=== PATIENT | male | born 1990 | race Two or more races ===

== ENCOUNTER 2022-02-04 08:52 | Emergency (ER) | payer SELFPAY ==
[2022-02-04] MEDS ORDERED: Lidocaine 1% 30 ML SDV INJECT ONE (09:08)
[2022-02-04] MEDS ORDERED: Diphtheria,Pertussis(Acell),Tetanus Vaccine 0.5 ML Syringe IM ONE (09:09)
== END 2022-02-04 10:32 | disposition home or self-care (01) ==
LOC: VM.ED 08:52
DX: S61.211A Laceration without foreign body of left index finger without damage to nail, initial encounter (principal); S61.213A Laceration without foreign body of left middle finger without damage to nail, initial encounter; S61.210A Laceration without foreign body of right index finger without damage to nail, initial encounter; S61.212A Laceration without foreign body of right middle finger without damage to nail, initial encounter; Z23 Encounter for immunization; W26.8XXA Contact with other sharp object(s), not elsewhere classified, initial encounter
CPT/HCPCS: 12002; 90471; 90715; 99282-25